=== PATIENT | female | born 1995 | race Caucasian/White ===

== ENCOUNTER 2020-04-15 15:26 | Outpatient (REF) | payer OTHER, SELFPAY ==
[2020-04-15 19:54] LABS: Free T4 (Free Thyroxine) 0.93 ng/dL (0.71-1.85); Thyroid Stimulating Hormone 4.76 uIU/mL (0.32-4.0)
== END 2020-04-15 15:27 | disposition home or self-care (01) ==
LOC: HO.MANLDS 15:26
PROVIDERS: PCP Internal Medicine; Visit Provider Physician Assistant
DX: E02 Subclinical iodine-deficiency hypothyroidism (principal)
CPT/HCPCS: 36415; 84439; 84443